=== PATIENT | male | born 1975 | race Caucasian/White ===

== ENCOUNTER 2017-04-28 21:12 | Emergency (ER) ==
[2017-04-28 21:22] VITALS: BP 144/85; TEMP 97.8; BMI 24.4
[2017-04-28] MEDS ORDERED: LIDOCAINE HCL 1% SDV SUBCUT STA (21:28)
--- NOTE | 2017-04-28 21:47 | ED.PDOC ---
General ED Provider: Dr. JEREMY GROSS-ER Chief Complaint: Bite Stated Complaint: was bitten by his dog on the lip Time Seen by Physician: 21:45 Mode of Arrival: Walk-In Information Source: Patient Exam Limitations: No limitations Primary Care Provider: JEREMY GROSS Nursing and Triage Documentation Reviewed and Agree: Yes Skin Complaint Exam - Laceration/Head/Facial Complaint/Exam Location of Injury: Lip Mechanism of Injury: Laceration Onset/Duration: 45 min Symptoms Are: Still present Initial Severity: Mild Current Severity: Mild Aggravating: Movement Alleviating: Compression Associated Signs and Symptoms: Denies: Fever, Chills, Erythema, Numbness, Tingling Differential Diagnoses: Laceration Review of Systems - Review Of Systems Constitutional: Reports: No symptoms Eyes: Reports: No symptoms Ears, Nose, Mouth, Throat: Reports: No symptoms Respiratory: Reports: No symptoms Cardiac: Reports: No symptoms GI: Reports: No symptoms : Reports: No symptoms Musculoskeletal: Reports: No symptoms Skin: Reports: No symptoms Neurological: Reports: No symptoms Endocrine: Reports: No symptoms Hematologic/Lymphatic: Reports: No symptoms All Other Systems: Reviewed and Negative Past Medical History - Past Medical History Previously Healthy: Yes Endocrine: Reports: DM 1 Cardiovascular: Reports: Unknown Respiratory: Reports: Unknown Hematological: Reports: Unknown Gastrointestinal: Reports: Unknown Genitourinary: Reports: Unknown Neuro/Psych: Reports: Unknown Musculoskeletal: Reports: Unknown Cancer: Reports: Unknown - Surgical History General Surgical History: Reports: Unknown - Family History Family History: Reports: Unknown - Social History Smoking Status: Former smoker Hx Substance Use: No Alcohol Screening: Occasionally - Immunizations Tetanus Shot up to Date: Yes (2015) Physical Exam - Physical Exam Appearance: Well-appearing, No pain distress, Well-nourished Pain Distress: Mild Eyes: ZOYA, EOMI, Conjunctiva clear ENT: Ears normal, Nose normal, Oropharynx normal Neck: Supple Respiratory: Airway patent Cardiovascular: RRR, Pulses normal, No rub, No murmur GI/: Soft Musculoskeletal: Normal strength Skin: Warm Neurological: Sensation intact, Motor intact, Reflexes intact, Cranial nerves intact, Alert, Oriented Psychiatric: Affect appropriate, Mood appropriate Procedures - Laceration/Wound Repair No standard instances Wound Description: Linear Wound Length (cm): 1.3 cm Wound Explored: Clean Wound Irrigated: Yes Wound Prep: Hibiclens Anesthesia: Lidocaine Wound Margins: Revised Wound Repaired With: Sutures Suture Size and Type: 5.0 prolene Number of Sutures: 4 Layer Closure?: No Sterile Dressing Applied?: Yes Splint Applied?: No Sling Applied?: No Critical Care Note - Critical Care Note Total Time (mins): 0 Course - Course Orders, Labs, Meds: Orders Category Date Time Status Lidocaine HCl/Pf [Lidocaine HCl 1% Sdv] MEDS 04/28/17 21:28 Stat 5 ml SUBCUT ONCE STA Medications Discontinued Medications Generic Name Dose Route Start Last Admin Trade Name Freq PRN Reason Stop Dose Admin Lidocaine HCl 5 ml 04/28/17 21:28 Lidocaine Hcl 1% Sdv SUBCUT 04/28/17 21:29 ONCE STA Vital Signs: Temp Pulse Resp BP Pulse Ox 04/28/17 21:13 97.8 F 81 20 144/85 H 97 Departure - Departure Time of Disposition: 21:47 Disposition: HOME SELF-CARE Discharge Problem: Lip laceration Qualifiers: Encounter type: initial encounter Qualified Code(s): S01.511A - Laceration without foreign body of lip, initial encounter Instructions: Laceration (ED), Care For Your Stitches (ED) Condition: Good Pt referred to PMD for follow-up: Yes Additional Instructions: suture care--sutures out in 7 days--call if any signs of infection Allergies/Adverse Reactions: Allergies erythromycin base Adverse Reaction (Verified 04/28/17 21:19) Rash Home Medications: Ambulatory Orders Insulin Regular, Human [Novolin R Insulin] 1 unit SQ DIRECTED 04/28/17 Disposition Discussed With: Patient, Family
== END 2017-04-28 21:50 | disposition home or self-care (01) ==
LOC: ED 21:12
DX: S01.551A Open bite of lip, initial encounter (principal); W54.0XXA Bitten by dog, initial encounter
CPT/HCPCS: 99283